=== PATIENT | male | born 1980 | race Caucasian/White ===

== ENCOUNTER 2017-04-12 18:15 | Emergency (ER) | payer OTHER, SELFPAY | END 2017-04-12 19:38 | disposition home or self-care (01) | PROVIDERS: Emergency Provider Nurse Practitioner; Family Provider Family Medicine; Visit Provider Nurse Practitioner | DX: S49.92XA Unspecified injury of left shoulder and upper arm, initial encounter (principal); W17.89XA Other fall from one level to another, initial encounter; Y93.89 Activity, other specified; Y92.89 Other specified places as the place of occurrence of the external cause; Y99.0 Civilian activity done for income or pay; Z79.899 Other long term (current) drug therapy | CPT/HCPCS: 29125; 73060; 73090; 96372; 99203 ==

== ENCOUNTER → 2017-04-24 | Outpatient (CLI) | payer OTHER, SELFPAY | PROVIDERS: Family Provider Family Medicine; Visit Provider Orthopaedic Surgery | DX: S52.135D Nondisplaced fracture of neck of left radius, subsequent encounter for closed fracture with routine healing (principal) | CPT/HCPCS: 73070 ==

== ENCOUNTER → 2017-05-23 12:30 | Outpatient (CLI) | payer OTHER, SELFPAY ==
--- NOTE | 2017-05-23 12:35 | XR_ITS ---
XR elbow LT 2V HISTORY: ITS.REASON: follow up fracture of neck of LEFT radius. ORDERING PHYSICIAN: Lopez Floyd MD PATIENT AGE: 36 years COMPARISON: 04/24/2017 FINDINGS: Nondisplaced fracture is present extending from the anterior aspect of the radial neck to the articular surface of the head of the radius. Fracture line is somewhat less distinct suggesting early healing. There is good alignment. IMPRESSION: Healing fracture of the neck and head of the radius
== END ==
PROVIDERS: PCP Family Medicine; Visit Provider Orthopaedic Surgery
DX: S52.135D Nondisplaced fracture of neck of left radius, subsequent encounter for closed fracture with routine healing (principal)
CPT/HCPCS: 73070

== ENCOUNTER → 2017-07-04 12:21 | Outpatient (CLI) | payer OTHER, BC, SELFPAY ==
--- NOTE | 2017-07-04 12:27 | XR_ITS ---
XR elbow LT 2V HISTORY: Follow-up fracture ITS.REASON: follow up fracture of neck of left radius ORDERING PHYSICIAN: Lopez Floyd MD PATIENT AGE: 36 years COMPARISON: 05/23/2017 FINDINGS: There is decrease prominence of the radial neck fracture with good alignment. Displaced fat pad no longer apparent. IMPRESSION: Healing left radial neck fracture
== END ==
PROVIDERS: PCP Family Medicine; Visit Provider Orthopaedic Surgery
DX: S52.132A Displaced fracture of neck of left radius, initial encounter for closed fracture (principal)
CPT/HCPCS: 73070

== ENCOUNTER 2023-05-24 13:41 | Emergency (ER) | payer BC, SELFPAY ==
[2023-05-24 13:43] VITALS: BP 135/92; PULSE 65; RESP 20; TEMP 36.6; O2SAT 98; BMI 29.8
--- NOTE | 2023-05-24 13:54 | ECG_ITS ---
APPROVED REPORT Exam: Resting ECG HR:61 bpm ECG Measurements Heart Rate [address] 172 P 71 QRSd 91 QRS 78 QT 401 T 70 QTc 403 Conclusion SINUS RHYTHM NORMAL ECG UNCONFIRMED REPORT Electronically signed by : Holden Urbina MD 05/24/2023 15:05:02
--- NOTE | 2023-05-24 13:59 | [facility].EDGENADL ---
Discharge Plan Disposition Patient Disposition: Home, Self-Care Condition: Good Prescriptions Prescriptions: New meclizine 25 mg tablet 25 mg PO BID PRN (Reason: dizziness) Qty: 30 0RF No Action amlodipine 2.5 mg tablet 2.5 mg PO QDAY valsartan 80 mg tablet 80 mg PO QDAY simvastatin 10 mg tablet 10 mg PO QPM Referrals Follow up/Referrals: Provider,Referral, MD [Primary Care Provider] - See instructions Activity Restrictions/Add. Instructions Additional Instructions/Restrictions: Your symptoms at this time are most consistent with something called BPPV. Medication, as well as a maneuver called Ashlie maneuver which we tried today can help with your symptoms. Please return with any new or worsening symptoms. Clinical Impressions Clinical Impression: Vertigo Instructions Patient Instructions: Benign Paroxysmal Positional Vertigo Discharge ED Provider: Abilio Livingston Adult HPI General Chief complaint: Dizziness Stated complaint: dizzy, vomiting Time Seen by Provider: 05/24/23 13:43 Mode of Arrival: Ambulatory Source of Information: Patient Limitations: No Limitations Description of Symptoms (Recalled from ER Triage Doc. by RN): pt began having dizziness today which caused n/v and him to fall a few times. pt states he feels like he is drunk and room was spinning. pt has hx of htn, dm, and high cholesterol. pt states his sugar this morning was 157. pt also complains of midsternal epigastric pressure that has been going on for a few weeks History of Present Illness HPI narrative: Patient describes sensation of dizziness described as room spinning in the absence of presyncope, trauma. This began gradually this morning but acutely worsened shortly prior to arrival. Regarding nursing note, he denied for me any falls or any precipitating trauma. He has not had similar symptoms before. Additionally regarding nursing note, he denies for me any chest pain or history of chest pain. He describes history of hypertension, hyperlipidemia, type 2 diabetes that has been well-controlled. His dizziness is worsened by sudden movement or laying back completely. He denies any issues with coordination, any vision changes, falling in any particular direction. No sick contacts, no recent travel. No headache. Related Data Home Medications Medication Instructions Recorded Confirmed amlodipine 2.5 mg tablet 2.5 mg PO QDAY 05/23/17 simvastatin 10 mg tablet 10 mg PO QPM 05/23/17 valsartan 80 mg tablet 80 mg PO QDAY 05/23/17 Previous Rx's Medication Instructions Recorded meclizine 25 mg tablet 25 mg PO BID PRN dizziness #30 tabs 05/24/23 Allergies Allergy/AdvReac Type Severity Reaction Status Date / Time No Known Allergies Allergy Verified 07/04/17 13:19 [facility] Disclaimer: The information contained in this section may have been updated after the patient was seen, as this information can be updated by other users. Social History Smoking Status: Current some day smoker alcohol intake: current counseling provided: provider counseling substance use type: denies use current occupational status: employed Travel in the last 8 weeks: None ROS Obtained: Yes Systems reviewed as appropriate & no additional complaints except as documented As per HPI Physical Exam General General appearance: alert and in no apparent distress Head Head exam: atraumatic and normocephalic Eye Eye exam: Present normal appearance, PERRL and EOMI Neck Neck exam: Present normal inspection Chest Chest inspection: Present normal inspection and symmetric chest wall rise Respiratory Respiratory exam: Present normal lung sounds bilaterally; Absent respiratory distress Cardiovascular Cardiovascular exam: Present regular rate and normal rhythm Abdominal Exam Abdominal exam: Present soft Neurological Exam Neurological exam: Present alert, oriented X3, CN II-XII intact and normal gait; Absent motor sensory deficit Expanded Neurological Exam Patient oriented to: Present person, place and time Speech: Present fluid speech Cranial nerves: Normal: EOM function (II, III, IV, ), facial sensation (V), facial palsy (VII) and gag reflex (IX) Cerebellar function: Normal: finger to nose and heel to sanchez Cerebellar function: normal gait Comment: Hints exam negative. Patient has positive [place]-Hallpike maneuver on the left side, negative on right side, after positive finding on left side of George [place]-Hallpike maneuver, patient transition to Ashlie maneuver Psychiatric Psychiatric exam: Present normal affect and normal mood Skin Skin exam: Present warm and dry Medical Decision Making Medical Records Medical records reviewed: Yes I reviewed the patient's medical records. Gus Inquiry Pt receiving controlled substance: No Vital Signs: 05/24/23 13:43 05/24/23 14:10 05/24/23 14:06 Temperature 97.8 F Temperature Source Oral Pulse Rate 69 Pulse Rate [Orthostatic Lying Left Radial] 68 Pulse Rate [Orthostatic Sitting Left Radial] 73 Pulse Rate [Orthostatic Standing Left Radial] 60 Pulse Rate [Right Radial] 65 Respiratory Rate 20 Blood Pressure 137/89 Blood Pressure [Orthostatic Lying Left Arm] 131/87 Blood Pressure [Orthostatic Sitting Left Arm] 137/89 Blood Pressure [Orthostatic Standing Left Arm] 131/85 Blood Pressure [Right Arm] 135/92 H Blood Pressure Mean [Right Arm] 106 02 Sat by Pulse Oximetry 98 97 Oxygen Delivery Method Room Air Room Air 05/24/23 14:07 05/24/23 14:20 05/24/23 15:03 Temperature 97.9 F Temperature Source Oral Pulse Rate 65 65 72 Pulse Rate [Orthostatic Lying Left Radial] Pulse Rate [Orthostatic Sitting Left Radial] Pulse Rate [Orthostatic Standing Left Radial] Pulse Rate [Right Radial] Respiratory Rate 16 Blood Pressure 131/85 126/89 127/87 Blood Pressure [Orthostatic Lying Left Arm] Blood Pressure [Orthostatic Sitting Left Arm] Blood Pressure [Orthostatic Standing Left Arm] Blood Pressure [Right Arm] Blood Pressure Mean [Right Arm] 02 Sat by Pulse Oximetry 96 96 Oxygen Delivery Method Room Air Room Air Room Air Lab Data Lab Results 05/24/23 13:55: WBC 8.4, RBC 5.04, Hgb 16.7, Hct 44.3, MCV 87.9, MCH 33.2 H, MCHC 37.8 H, RDW 13.6, Plt Count 248, MPV 8.0, Neut % (Auto) 64.7, Lymph % (Auto) 24.0, [place] % (Auto) 8.2, Eos % (Auto) 2.2, Baso % (Auto) 0.9, Neut # (Auto) 5.4, Lymph # (Auto) 2.0, [place] # (Auto) 0.7, Eos # (Auto) 0.2, Baso # (Auto) 0.1, Sodium 137, Potassium 4.1, Chloride 106, Carbon Dioxide 26, Anion Gap 9.1, BUN 15, Creatinine 0.80, Estimated Creat Clear 166, Estimated GFR 105, Est GFR ( Amer) 127, Glucose 135 H, Calcium 9.0, Total Bilirubin 1.3, AST 30, ALT 32, Alkaline Phosphatase 77, Troponin I < 0.01, Total Protein 7.0, Albumin 4.4, Globulin 2.6, Albumin/Globulin Ratio 1.7 05/24/23 13:55 05/24/23 13:55 Orders (Tests/Meds): ED MEDICATIONS Discontinued Medications Generic Name Dose Route Start Last Admin Trade Name Freq PRN Reason Stop Dose Admin Meclizine HCl 50 mg 05/24/23 14:33 05/24/23 14:35 Meclizine 25mg Tablet PO 05/24/23 14:34 50 mg ONCE ONE Administration Sodium Chloride 10 ml 05/24/23 14:08 Sodium Chloride 0.9% 10ml Flush Syringe IV 06/23/23 14:07 NEEDED PRN Maintain IV Site ORDERS Category Date Time Status Complete Blood Count Auto Diff Stat Lab 05/24/23 13:55 Completed Comprehensive Metabolic Panel Stat Lab 05/24/23 13:55 Completed Troponin I Stat Lab 05/24/23 13:55 Completed ECG initial [place]on Routine Y 05/24/23 13:54 Completed Medical Decision Narrative: Patient with history and exam per above presenting for evaluation of dizziness Diagnoses considered include central vertigo including cerebellar stroke, peripheral vertigo including vestibular neuronitis, BPPV, labyrinthitis, no historical or clinical evidence to suggest anemia or presyncopal causes of patient's symptoms. Regarding central vertigo, patient has positive findings concerning for peripheral vertigo, has no cerebellar signs on examination, and I discussed with patient and family member at bedside that, at this time, I believe the risks of radiation exposure outweigh the benefits of CT imaging given this information. ED workup and treatment included: ED MEDICATIONS Discontinued Medications Generic Name Dose Route Start Last Admin Trade Name Willian PRN Reason Stop Dose Admin Meclizine HCl 50 mg 05/24/23 14:33 05/24/23 14:35 Meclizine 25mg Tablet PO 05/24/23 14:34 50 mg ONCE ONE Administration Sodium Chloride 10 ml 05/24/23 14:08 Sodium Chloride 0.9% 10ml Flush Syringe IV 06/23/23 14:07 NEEDED PRN Maintain IV Site ORDERS Category Date Time Status Complete Blood Count Auto Diff Stat Lab 05/24/23 13:55 Completed Comprehensive Metabolic Panel Stat Lab 05/24/23 13:55 Completed Troponin I Stat Lab 05/24/23 13:55 Completed ECG initial [place] Routine Y 05/24/23 13:54 Completed Labs were independently interpreted by me, significant for no leukocytosis, troponin undetectable Patient's EKG was independently visualized and interpreted by me significant for normal sinus rhythm, normal axis, no acute ST changes, QTc within normal limits My clinical impression at this time is most consistent with BPPV or other cause of peripheral vertigo. Patient had some improvement of symptoms after Ashlie maneuver as well as administration of meclizine I discussed my clinical impression with patient and answered all questions. At this time, the evidence for any other entities in the differential is insufficient to warrant any further testing or ED observation. This was explained to the patient. The patient was advised that persistent or worsening symptoms require further evaluation. I confirmed the patient's understanding of this discussion. Critical Care Critical Care Time Critical Care Time: No
[2023-05-24 14:06] VITALS: BP 137/89; PULSE 69; O2SAT 97
[2023-05-24 14:07] VITALS: BP 131/85; PULSE 65; O2SAT 96
[2023-05-24 14:10] VITALS: BP 131/85; BP 131/87; BP 137/89; PULSE 60; PULSE 68; PULSE 73
[2023-05-24 14:15] LABS: Chloride 106 mmol/L (98-107); Sodium 137 mmol/L (136-145)
[2023-05-24 14:16] LABS: Basophils # 0.1 K/mm3 (0-0.2); Basophils % 0.9 % (0.1-2.0); Eosinophils # 0.2 K/mm3 (0.0-0.4); Eosinophils % 2.2 % (0.1-12.0); Hematocrit 44.3 % (42.0-52.0); Hemoglobin 16.7 g/dL (14.1-18.0); Mean Corpuscular HGB Conc 37.8 g/dL (31.8-35.4); Mean Corpuscular Hemoglobin 33.2 pg (27.0-31.2); Mean Corpuscular Volume 87.9 fl (80-94); Monocytes # 0.7 K/mm3 (0.1-1.0); Monocytes % 8.2 % (1.7-9.3); Neutrophils # 5.4 K/mm3 (1.8-7.8); Neutrophils % 64.7 % (37.0-80.0); Platelet Count 248 K/mm3 (142-424); Potassium 4.1 mmoL/L (3.5-5.1); Red Blood Count 5.04 M/mm3 (4.60-6.20); Red Cell Distribution Width 13.6 % (11.5-17.5); White Blood Count 8.4 K/mm3 (4.8-10.8)
[2023-05-24 14:18] LABS: Alanine Aminotransferase 32 U/L (12-78); Alkaline Phosphatase 77 U/L (38-126); Anion Gap 9.1 mEq/L (5-15); Aspartate Amino Transferase 30 U/L (17-59); Bilirubin,Total 1.3 mg/dl (0.2-1.3); Blood Urea Nitrogen 15 mg/dl (9-20); Carbon Dioxide 26 mmol/L (22.0-30.0); Creatinine Clearance Estimated 166 mL/min (50-200); Estimated Glomerular Filt Rate 105 ml/min (>60); GFR (African American) 127 ML/MIN (>60)
[2023-05-24 14:19] LABS: Albumin Level 4.4 g/dl (3.5-5.0); Albumin/Globulin Ratio 1.7 (1.1-1.8); Globulin 2.6 g/dL (1.3-3.2); Glucose 135 mg/dl (74-100)
[2023-05-24 14:20] VITALS: BP 126/89; PULSE 65; O2SAT 96
[2023-05-24 14:32] LABS: Troponin I < 0.01 ng/ml (0.00-0.034)
[2023-05-24] MEDS: MECLIZINE 25MG TABLET 50 MG PO (14:35)
[2023-05-24 15:03] VITALS: BP 127/87; PULSE 72; RESP 16; TEMP 36.6; O2SAT 98
== END 2023-05-24 15:09 | disposition home or self-care (01) ==
PROVIDERS: Emergency Provider Emergency Medicine
DX: R42 Dizziness and giddiness (principal); R11.2 Nausea with vomiting, unspecified; R10.13 Epigastric pain; I10 Essential (primary) hypertension; E11.9 Type 2 diabetes mellitus without complications; E78.00 Pure hypercholesterolemia, unspecified; F17.200 Nicotine dependence, unspecified, uncomplicated
CPT/HCPCS: 80053; 84484; 85025; 93005; 99285